=== PATIENT | male | born 1940 | race Caucasian/White ===

== ENCOUNTER 2020-05-13 09:35 | Emergency (ER) | payer OTHER, MEDICARE ==
--- NOTE | 2020-05-13 09:44 | PDOC ---
History of Present Illness - General Chief Complaint: Altered Mental Status Stated Complaint: HEADACHE RESOLVED Time Seen by Provider: 05/13/20 09:38 History Source: Patient Exam Limitations: No Limitations - History of Present Illness Initial Comments: 05/13/20 09:41 79 y/o male with hx of afib and spinal stenosis presents with a headache this morning on right side that has now resolved. 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 Denies slurred speech but states thoughts were a little off. Took Tylenol and headache is now resolved. No chest pain or SOB. No fall or trauma. No N/V/D/c. No hx of TIA or stroke. Was playing a game on his phone when this occurred. Takes Xarelto for his afib. Feels fine now but his friend wanted him checked out. Saw PMD 10 days ago. 05/13/20 10:56 Severity: Yes: mild Associated Symptoms: denies: nausea/vomiting, numbness in legs/feet, slurred speech Past History - Medical History Allergies/Adverse Reactions: Allergies Allergy/AdvReac Type Severity Reaction Status Date / Time No Known Allergies Allergy Verified 12/09/14 12:05 Home Medications: Ambulatory Orders Acetaminophen [Tylenol -] 1,000 mg PO ONCE PRN 05/13/20 Atorvastatin Ca [Lipitor] 10 mg PO HS 05/13/20 Rivaroxaban [Xarelto] 10 mg PO DAILY 05/13/20 Anemia: No Asthma: Yes (COPD) Cancer: No Cardiac Disorders: Yes (AF) CVA: Yes (TIA x 2) COPD: No CHF: No Dementia: No Diabetes: No GI Disorders: Yes (COLONIC POLYPS) Disorders: No HTN: Yes Hypercholesterolemia: Yes Liver Disease: No Seizures: No Thyroid Disease: Yes - Surgical History Abdominal Surgery: No Appendectomy: No Cardiac Surgery: No Cholecystectomy: No Lung Surgery: No Neurologic Surgery: No Orthopedic Surgery: No - Immunization History Td Vaccination: No TDAP Vaccination: No Immunization Up to Date: Yes - Psycho-Social/Smoking History Smoking History: Never smoked Have you smoked in the past 12 months: No Number of Cigarettes Smoked Daily: 0 If you are a former smoker, when did you quit?: 50 YEARS Review of Systems - Review of Systems Able to Perform ROS?: Yes Is the patient limited Ukrainian proficient: No Constitutional: No: Chills, Fever Respiratory: No: Cough, Shortness of Breath Cardiac (ROS): No: Chest Pain ABD/GI: No: Nausea, Vomiting Neurological: Yes: Headache. No: Numbness, Unsteady Gait All Other Systems: Reviewed and Negative *Physical Exam - Physical Exam General Appearance: Yes: Nourished, Appropriately Dressed, Apparent Distress HEENT: positive: Normal ENT Inspection, Normal Voice, Symmetrical, Pharynx Normal. negative: EOMI, RUDY (let eye is a prostesis) Neck: positive: Trachea midline, Normal Thyroid, Supple. negative: Tender, Rigid, Carotid bruit Respiratory/Chest: positive: Lungs Clear, Normal Breath Sounds. negative: Chest Tender, Respiratory Distress Cardiovascular: positive: Regular Rhythm, Regular Rate, S1, S2. negative: Edema, JVD, Murmur Vascular Pulses: Femoral (R): 4+, Femoral (L): 4+, Carotid (R): 4+, Carotid (L): 4+, Dorsalis-Pedis (R): 4+, Doralis-Pedis (L): 4+ Gastrointestinal/Abdominal: positive: Normal Bowel Sounds, Flat, Soft. negative: Tender, Organomegaly, Pulsatile Mass Lymphatic: negative: Adenopathy, Tenderness, Other Musculoskeletal: positive: Normal Inspection. negative: CVA Tenderness Extremity: positive: Normal Capillary Refill, Normal Inspection, Normal Range of Motion Integumentary: positive: Normal Color, Dry, Warm Neurologic: positive: vice president sales and marketing II-XII NML intact (strength 5+/5 b/l in UE and LE, no focal deficits noted), Fully Oriented, Alert, Normal Mood/Affect, Normal Response, Motor Strength 5/5 Heart Score/ECG Review - ECG Intrepretation Rhythm: Regular Rhythm Comment:: 05/13/20 10:00 EKG done at 958 shows hr 56, sinus bradycardia with first degree AV block and RBBB, no STEMI - [place]: Normal - P and MA Prolonged MA Interval: 1st Degree Block(>20mils) - ST and T Early Repolarization: No - ECG Impressions Heart Block: 1st Degree Block(>20mils) ED Treatment Course - LABORATORY CBC & Chemistry Diagram: 05/13/20 10:10 05/13/20 10:10 ED Progress Note - Progress Note Progress Note: 05/13/20 09:46 Patient with headache possible TIA, will obtain CT head Await labs Pt in agreement with plan 05/13/20 10:54 Pt feels fine with no neuro deficits CT head neg Labs neg Patient wishes to go home already on Xaralto Advised if worsen to return to ER Patient understands risks and benefits and wishes discharge, no admission 05/13/20 10:56 Advised patient that this may have been a TIA Discharge - Discharge Information Problems reviewed: Yes Clinical Impression/Diagnosis: Headache Condition: Good Disposition: HOME - Admission No - Follow up/Referral Referrals: Manuelito Kyle MD [Primary Care Provider] - - Patient Discharge Instructions Patient Printed Discharge Instructions: DI for Headache Additional Instructions: Fluids, rest, Tylenol If worsen return to ER Follow up with Dr. 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) Facial paresis (Show teeth/raise eyebrows/close eyes tight): Normal symmetrical movement Motor Function: Left Arm: Normal Motor Function: Right Arm: Normal (extends arm 90 (or 45) degrees for 10 seconds without drift Motor Function: Left Leg: Normal (extends leg 30 degrees for 5 seconds without drift) Motor Function: Right Leg: Normal (extends leg 30 degrees for 5 seconds without drift) Limb Ataxia: No ataxia Sensory(Use pinprick test arms,legs,trunk,face/side to side): Normal Best language (Describe picture, name items, read sentences): No Aphasia Dysarthria (read several words): Normal articulation Extinction and Inattention: No abnormality - Total Score NIH Stroke Scale Score: 0
[2020-05-13 09:53] VITALS: TEMP 97.5; BMI 23.7
[2020-05-13 10:33] LABS: BASO % 1.6 % (0-2.0); EOS % 2.3 % (0-4.5); HEMATOCRIT 49.5 % (35.4-49); HEMOGLOBIN 16.6 GM/dl (11.7-16.9); LYMPH % 26.9 % (8-40); MCH 30.5 pg (25.7-33.7); MCHC 33.6 g/dl (32.0-35.9); MEAN CELL VOLUME 90.6 fl (80-96); MEAN PLT VOLUME 9.6 fl (7.5-11.1); MONO % 10.5 % (3.8-10.2); NEUT % 58.7 % (42.8-82.8); PLATELET COUNT 179 K/MM3 (134-434); RBC 5.46 M/mm3 (4.00-5.60); RDW 14.5 % (11.9-15.9); WHITE BLOOD COUNT 6.7 K/mm3 (4.0-10.8)
[2020-05-13 10:40] LABS: ALBUMIN 3.8 g/dl (3.4-5.0); BILIRUBIN,TOTAL 1.1 mg/dl (0.2-1); CALCIUM 9.2 mg/dl (8.5-10)
[2020-05-13 10:52] VITALS: BP 133/82; PULSE 54
--- NOTE | 2020-05-13 14:29 | EKG ---
Test Reason : Blood Pressure : / mmHG Vent. Rate : 056 BPM Atrial Rate : 056 BPM P-R Int : 226 ms QRS Dur : 128 ms QT Int : 458 ms P-R-T Axes : 000 127 032 degrees QTc Int : 441 ms SINUS BRADYCARDIA WITH 1ST DEGREE A-V BLOCK RIGHT BUNDLE BRANCH BLOCK ABNORMAL ECG Confirmed by MD NIYA, ERIK ([id number]) on 05/13/2020 2:28:57 PM Referred By: DR MENESES Confirmed By:ERIK NÚÑEZ MD
== END 2020-05-13 11:00 | disposition home or self-care (01) ==
LOC: FER 09:35
DX: R51 Headache (principal)
CPT/HCPCS: 36415; 70450-TC; 80053; 84484; 85025; 93005; 99284-25